=== PATIENT | female | born 1995 | race Caucasian/White ===

== ENCOUNTER 2024-02-14 19:01 | Emergency (ER) | payer MEDICAID ==
[~2024-02-14] VITALS: Ht 157.5 cm; Wt 90.9 kg
[~2024-02-14 19:01] MED LIST: CARAFATE 1GM1 G PO; DOXYCYCLINE 10100 MG PO; FLAGYL500 MG PO; NORCO 325 MG-51 TAB PO; OMNICEF 300MG300 MG PO; PRENATAL1 TA1 PO
[2024-02-14 19:05] VITALS: TEMP 98.4
[2024-02-14 20:10] LABS: BASO # 0.1 K/mm3 (0.0-0.2); BASO % 0.4 % (0.0-2.0); EOS # 0.3 K/mm3 (0.0-0.7); EOS % 2.1 % (0.0-4.0); GRAN # 10.5 K/mm3 (1.4-6.5); GRAN % 68.3 % (42.2-75.2); HEMOGLOBIN 14.9 g/dl (12.5-16.0); LYMPH # 3.2 K/mm3 (1.2-3.4); LYMPH % 20.8 % (20.0-51.0); MEAN CELL VOLUME 91 fl (80.0-100.0); MEAN CORPUSCULAR HEMOGLOBIN 32 pg (27-31); MEAN CORPUSCULAR HGB CONC 36 g/dl (33.0-37.0); MEAN PLATELET VOLUME 11.2 fl (7.4-10.4); MONO # 1.2 K/mm3 (0.1-0.6); PLATELET COUNT 353 K/mm3 (130-400); RED BLOOD COUNT 4.63 M/mm3 (4.10-5.30); REDCELL DISTRIBUTION WIDTH-CV 11.8 % (11.5-14.5)
[2024-02-14] MEDS ORDERED: Ketorolac 30 MG/ML VIAL IV ONE (20:15)
[2024-02-14 20:29] LABS: ALANINE AMINOTRANSFERASE 88 U/L (0-55); ALBUMIN 4.1 g/dL (3.5-5.0); ALKALINE PHOSPHATASE 89 U/L (40-150); ANION GAP 11 mmol/L (7-16); AST,SGOT 53 U/L (5-34); BILIRUBIN,TOTAL 0.3 mg/dL (0.2-1.2); BLOOD UREA NITROGEN 9 mg/dL (7-19); CALCIUM 9.6 mg/dL (8.4-10.2); CHLORIDE 109 mEq/L (98-107); GLUCOSE 99 mg/dL (70-99); LIPASE 30 U/L (8-78); POTASSIUM 3.9 mEq/L (3.5-4.5); SODIUM 141 mEq/L (136-145); TOTAL PROTEIN 7.6 g/dl (6.2-8.1)
[2024-02-14 20:45] LABS: TROPONIN-I < 0.010 ng/mL (0.00-0.033)
[2024-02-14 21:32] VITALS: BP 124/81; PULSE 78
== END 2024-02-14 21:32 | disposition home or self-care (01) ==
LOC: COL.ER 19:01
PROVIDERS: Emergency Medicine
DX: R07.89 Other chest pain (principal); F17.290 Nicotine dependence, other tobacco product, uncomplicated
CPT/HCPCS: J1885